=== PATIENT | female | born 1935 | race Caucasian/White ===

== ENCOUNTER 2021-05-04 12:14 | Emergency (ER) | payer OTHER ==
[2021-05-04 13:13] LABS: #Lymphocytes 0.9 thou/uL (1.20-3.40); #Monocytes 0.8 thou/uL (0.11-0.59); #Neutrophils 17.9 thou/uL (1.40-6.50); %Basophils 0.2 % (0.0-1.0); %Lymphocytes 4.6 % (21.0-51.0); %Monocytes 4.1 % (0.0-10.0); %Neutrophils 91.1 % (42.0-75.0); Hemoglobin 13.4 g/dL (12.0-16.0); Mean Corpuscular HGB CONC 31.8 g/dL (32.0-36.0); Mean Corpuscular Hemoglobin 29.5 pg (27.0-31.0); Mean Corpuscular Volume 92.6 fL (78.0-98.0); Mean Platelet Volume 6.7 fL (7.4-10.4); Platelet Count 253 thou/uL (130-400); RBC Distribution Width 12.8 % (11.5-14.5); Red Blood Cell (RBC) Count 4.54 mill/uL (4.20-5.40); White Blood Cell (WBC) Count 19.6 thou/uL (4.8-10.8)
[2021-05-04] MEDS ORDERED: Acetaminophen 500 MG TAB ONE (13:19)
[2021-05-04] MEDS ORDERED: Acetaminophen 325 MG TAB ONE (13:19)
[2021-05-04 13:34] LABS: ALT (SGPT) 61 U/L (8-55); AST (SGOT) 49 U/L (5-34); Albumin 3.5 g/dL (3.4-4.8); Alkaline Phosphatase 107 U/L (40-110); Anion Gap 19 mmol/L (10-20); BUN (Urea Nitrogen) 42 mg/dL (9.8-20.1); Bilirubin, Total 0.6 mg/dL (0.2-1.2); Calc. Creatinine Clearance 0 mL/min (70-130); Carbon Dioxide 23 mmol/L (23-31); Chloride 97 mmol/L (98-107); Globulin 3.6 g/dL (2.4-3.5); Glucose 203 mg/dL (83-110); Potassium 4.1 mmol/L (3.5-5.1); Protein, Total 7.1 g/dL (5.8-8.1); Sodium 135 mmol/L (136-145)
[2021-05-04 13:42] LABS: CRP (Inflammatory) 36.3 mg/dL (= or < 0.5)
[2021-05-04 13:53] LABS: CKMB 0.6 ng/mL (0-6.6)
[2021-05-04 14:30] LABS: Bilirubin Negative (Negative); Blood, Urine Moderate (Negative); Clarity Slightly Cloudy (Clear); Glucose, Urine (Dipstick) Negative (Negative); Ketone, Urine Negative (Negative); Leukocyte Small (Negative); Nitrite Negative (Negative); Protein, Urine (Dipstick) 100 mg/dL (Neg-Trace); Urobilinogen 0.2 mg/dL (Less than 2); pH, Urine 5.5 (5.0-9.0)
[2021-05-04] MEDS ORDERED: Aspirin 325 MG TAB ONE (14:30)
[2021-05-04] MEDS ORDERED: Sodium Chloride 0.9% 100 ML ONE (14:30)
[2021-05-04] MEDS ORDERED: Cefepime 2 GM VIAL ONE (14:30)
[2021-05-04] MEDS ORDERED: metroNIDAZOLE 500 MG/100 ML BAG ONE (14:31)
[2021-05-04 14:44] LABS: Bacteria/HPF 4+ HPF (None Seen); WBC/HPF 21-50 HPF (0-3)
[2021-05-04 15:56] LABS: SARS-CoV-2 NAA Rapid Test Not Detected (NotDetected)
== END 2021-05-04 16:11 | disposition short-term general hospital (02) ==
LOC: MADERS 12:14
DX: N39.0 Urinary tract infection, site not specified (principal); R77.8 Other specified abnormalities of plasma proteins; E11.9 Type 2 diabetes mellitus without complications; E78.5 Hyperlipidemia, unspecified; E78.00 Pure hypercholesterolemia, unspecified; I10 Essential (primary) hypertension; Z20.822 Contact with and (suspected) exposure to COVID-19; Z79.82 Long term (current) use of aspirin; Z79.84 Long term (current) use of oral hypoglycemic drugs; Z79.02 Long term (current) use of antithrombotics/antiplatelets
CPT/HCPCS: 36415; 71045; 71250; 74177; 80053; 81003; 81015; 82550; 82553; 83605; 83880; 84484; 85025; 85379; 86140; 87040; 87077; 87086; 87186; 87804; 93005; 94760; 96365; 96375; J0692; J3490; U0002